=== PATIENT | male | born 1975 | race Two or more races ===

== ENCOUNTER 2017-11-24 13:12 | Inpatient (IN) | payer OTHER ==
[~2017-11-24 13:12] MED LIST: ISOVUE-370 76%-LOCM 1 ML ONE; Iopamidol 370 76% 50 ML VIAL FS ONE; Ketorolac Tromethamine 30 MG/ML VIAL ONE; Lidocaine 1% PF 5 ML VIAL ONE; Ondansetron HCl/PF 4 MG/2 ML Vial ONE; PHENYLEPHRINE-NS 100 MCG/ML 10 ML SYRINGE ONE; PROPOFOL 200 MG/20 ML VIAL ONE; Succinylcholine Chloride 20 MG/ML 10 ml SYRINGE FS ONE; ePHEDrine/0.9% NaCl/PF SYRINGE 50 mg/10 ml ONE
[2017-11-24 15:03] LABS: Mean Corpuscular HGB CONC 32.7 g/dL (32.0-36.0); Mean Corpuscular Hemoglobin 23.6 pg (27.0-31.0); Mean Corpuscular Volume 72.2 fl (80.0-94.0); Mean Platelet Volume 9.2 fL (7.4-10.4); Platelet Count 345 thou/uL (130-400); RBC Distribution Width 16.1 % (11.5-14.5); Red Blood Cell (RBC) Count 5.52 mill/uL (4.70-6.10); White Blood Cell (WBC) Count 5.9 thou/uL (4.8-10.8)
[2017-11-24 15:12] LABS: ALT (SGPT) 12 U/L (8-55); AST (SGOT) 12 U/L (5-34); Albumin 4.1 g/dL (3.5-5.0); Alkaline Phosphatase 81 U/L (40-150); Anion Gap 11 mmol/L (10-20); BUN (Urea Nitrogen) 22 mg/dL (8.9-20.6); Bilirubin, Total 0.4 mg/dL (0.2-1.2); Calc. Creatinine Clearance 0 mL/min (70-130); Carbon Dioxide 25 mmol/L (22-29); Chloride 103 mmol/L (98-107); Estimated GFR-MDRD 86; Glucose 95 mg/dL (70-105); Lipase 8 U/L (8-78); Potassium 3.8 mmol/L (3.5-5.1); Protein, Total 7.1 g/dL (6.0-8.3); Sodium 135 mmol/L (136-145)
[2017-11-24 15:30] LABS: Anisocytosis SLIGHT = 6-15 cells (100X) (0-5/hpf); Band 2 % (5-11); Eosinophils 1 % (0-10); Lymphocytes 53 % (21-51); MDiff Complete? YES; Monocytes 7 % (0-10); Neutrophil 37 % (42-75); PLT Morphology Comment Appears Adequate
[2017-11-24] MEDS ORDERED: Lorazepam 2 MG/ML VIAL ONE (16:44)
[2017-11-24] MEDS ORDERED: Morphine 4 MG/ML VIAL ONE (16:44)
[2017-11-24] MEDS ORDERED: Benzocaine 20% Spray 60 ML CAN ONE ×2 (17:02→17:35)
[2017-11-24] MEDS ORDERED: Piperacillin/Tazobactam 4.5 GM in Sodium Chloride 0.9% 100 ML IVPB SCH (17:15)
--- NOTE | 2017-11-24 17:45 | CT ---
CT ABDOMEN AND PELVIS WITH IV CONTRAST: 11/24/17 HISTORY: Abdominal pain which began two weeks ago. Patient unable to hold food down. FINDINGS: Linear densities are seen at each lung base probably related to atelectasis. There is dilatation of the cecum and ascending colon as well as multiple dilated loops of small bowel . The cecum measures 10.7 cm in greatest diameter with loops of small bowel measuring up to 5.6 cm in diameter. There is gas density seen in the region of the wall of loops of small bowel with beaded ty pe appearance and findings are worrisome for possibility of bowel wall gas related to pneumatosis. There is a mass with apple core configuration involving the hepatic flexure which is at the site of o bstruction. There are a few subcentimeter low density lesions within the right hepatic lobe which could potential ly represent metastatic lesions as the colonic mass is worrisome for neoplastic process. The spleen, pancreas, bilateral adrenal glands, kidneys, and decompressed urinary bladder demonstrate a grossly normal CT appearance. Vascular calcifications are seen in the infrarenal abdominal aorta and involving the iliac arteries. IMPRESSION: 1. Obstructing colonic mass at the level of the hepatic flexure with marked dilatation of loops of small bowel as well as the cecum. In addition, there are findings worrisome for pneumatosis involv ing loops of small bowel. 2. No free intraperitoneal gas or free fluid is present. 3. Hypodense right hepatic lobe lesions which could potentially represent metastatic disease. 4. Above findings discussed with Dr. Contreras in the Emergency Department on 11/24/17 at 1637 hours . 1. POS: [facility]
[2017-11-24] MEDS ORDERED: Bupivacaine/Epinephrine 0.25% 30 ML VIAL ONE (18:02)
[2017-11-24] MEDS ORDERED: Ketamine 50 MG/ML VIAL ONE (18:14)
[2017-11-24] MEDS ORDERED: Fentanyl 250 MCG/5 ML VIAL ONE (18:14)
[2017-11-24] MEDS ORDERED: Midazolam HCl 2 mg/2 ml Vial ONE (18:14)
[2017-11-24] MEDS ORDERED: Promethazine HCl 25 MG/ML VIAL ONE ×2 (18:16→21:20)
[2017-11-24] MEDS ORDERED: Ondansetron HCl/PF 4 MG/2 ML Vial ONE (18:16)
--- NOTE | 2017-11-24 18:56 | RAD ---
KUB: 11/24/17 INDICATION: Confirm NG tube placement. FINDINGS: NG tube projects in the region of the gastric fundus. Dilated loops of small and large bowel are pres ent likely related to colonic obstruction seen on CT examination dated 11/24/17. There is contrast exc retion within the renal collecting systems from the patient's recent CT evaluation. IMPRESSION: NG tube within the region of the gastric fundus. POS: [facility]
--- NOTE | 2017-11-24 18:57 | HP ---
CHIEF COMPLAINT: Abdominal distention, abdominal pain, nausea, and vomiting. HISTORY OF PRESENT ILLNESS: Patient is a 42-year-old male. He gives about a 2 week history of abdominal symptoms including postprandial vomiting, abdominal bloating and decreased frequency of bowel function. He denies any melena or hematochezia. He presented to the emergency room this even ing because of progressive distention and discomfort. He was seen in the emergency room by Dr. Sally sahu. He had a CT scan and laboratory studies performed. The CT scan reveals what appears to be an obs tructing colon lesion at the hepatic flexure. There is marked dilatation of the cecum and small carol l. There is a single hypodense lesion within the liver, potentially consistent with metastatic disea se. LABORATORY STUDIES: Revealed normal electrolytes and liver function tests. CEA level is pending. C BC reveals a hemoglobin level of 13 with a white blood cell count of 5.9. PAST MEDICAL HISTORY: Negative. PAST SURGICAL HISTORY: Tonsillar abscess. MEDICATIONS: Omeprazole. ALLERGIES: No known drug allergies. PERSONAL/SOCIAL HISTORY: He formerly smoked and drank occasionally. He denies prior drug use. He h as been incarcerated for 22 months and is scheduled to be released in the next 2 or 3 months. He is originally from [place]. REVIEW OF SYSTEMS: Otherwise, unremarkable. FAMILY HISTORY: Noncontributory. PHYSICAL EXAMINATION: VITAL SIGNS: He is afebrile. Vital signs within normal limits. GENERAL: He is a well-developed, well-nourished, pleasant male, resting in bed, in no acute distress. Nasogastric tube is in place, but really has been put out very much. He is alert and birgit ented x3. HEENT: Unremarkable. NECK: Supple, without mass or tenderness. LUNGS: Clear to auscultation throughout. CARDIAC: Regular rate and rhythm without murmur. ABDOMEN: Markedly distended. Bowel sounds are hypoactive. There is no focal tenderness, but it was so distended, it is hard to discern. EXTREMITIES: Unremarkable. RECTAL: Deferred at this time. ASSESSMENT: Patient with an obstructing colon lesion, consistent with colon cancer. PLAN: I have ordered a CEA level off of his labs already drawn. He clearly needs an exploratory lap arotomy with resection and end colostomy. I have discussed all this in detail with the patient as we ll as potential risks. He understands and agrees to proceed with surgery at this time.
[2017-11-24] MEDS ORDERED: HYDROmorphone 0.5 MG/0.5 ML SYRINGE ONE ×2 (19:57→21:20)
[2017-11-24] MEDS ORDERED: Fentanyl 100 MCG/2 ML VIAL ONE (21:20)
[2017-11-24] MEDS ORDERED: Promethazine HCl 25 MG/ML VIAL SLOW IVP PRN (21:37)
[2017-11-24] MEDS ORDERED: Promethazine HCl 25 MG/ML VIAL IM PRN ×2 (21:37→21:53)
[2017-11-24] MEDS ORDERED: HYDROmorphone 2 MG/ML VIAL SLOW IVP PRN (21:37)
[2017-11-24] MEDS ORDERED: Ondansetron HCl/PF 4 MG/2 ML Vial IVP PRN ×2 (21:37→21:53)
[2017-11-24] MEDS ORDERED: D5 1/2 NS w/20 mEq KCL 1,000 ML ONE (21:49)
[2017-11-24] MEDS ORDERED: hydrALAZINE 20 MG/ML VIAL SLOW IVP PRN (21:53)
[2017-11-24] MEDS: D5 1/2 NS w/20 mEq KCL 1,000 ML IV SCH (23:37)
[2017-11-24] MEDS: Famotidine 20 MG TAB PO SCH (23:38)
[2017-11-24] MEDS: Famotidine/PF 20 mg/2ml Vial SLOW IVP SCH (23:38)
[2017-11-25 00:23] VITALS: BMI 25.4
[2017-11-25] MEDS: cefOXitin 2 GM in Sodium Chloride 0.9% 100 ML IVPB SCH ×2 (01:11→05:44)
[2017-11-25] MEDS: Acetaminophen 1,000 MG in Premix Bag 1 BAG IVPB SCH ×4 (01:12→17:17)
[2017-11-25] MEDS: Ketorolac Tromethamine 30 MG/ML VIAL IVP SCH ×4 (01:13→17:16)
[2017-11-25 05:24] LABS: #Lymphocytes 0.8 thou/uL (1.20-3.40); #Monocytes 0.7 thou/uL (0.11-0.59); #Neutrophils 7.4 thou/uL (1.40-6.50); %Basophils 0.1 % (0.0-1.0); %Lymphocytes 8.8 % (21.0-51.0); %Monocytes 8.1 % (0.0-10.0); Hemoglobin 12.5 g/dL (14.0-18.0); Mean Corpuscular HGB CONC 33.6 g/dL (32.0-36.0); Mean Corpuscular Hemoglobin 24.2 pg (27.0-31.0); Mean Platelet Volume 8.9 fL (7.4-10.4); Platelet Count 294 thou/uL (130-400); Red Blood Cell (RBC) Count 5.15 mill/uL (4.70-6.10); White Blood Cell (WBC) Count 8.9 thou/uL (4.8-10.8)
[2017-11-25 05:41] LABS: Anion Gap 7 mmol/L (10-20); BUN (Urea Nitrogen) 16 mg/dL (8.9-20.6); Calc. Creatinine Clearance 125 mL/min (70-130); Calcium 8.5 mg/dL (7.8-10.44); Carbon Dioxide 26 mmol/L (22-29); Chloride 103 mmol/L (98-107); Estimated GFR-MDRD Greater than 90; Glucose 192 mg/dL (70-105); Potassium 4.5 mmol/L (3.5-5.1); Sodium 131 mmol/L (136-145)
[2017-11-25] MEDS: D5 1/2 NS w/20 mEq KCL 1,000 ML IV SCH ×3 (06:21→20:35)
[2017-11-25] MEDS: Famotidine/PF 20 mg/2ml Vial SLOW IVP SCH ×2 (08:43→20:33)
[2017-11-25] MEDS: Enoxaparin Sodium 40 MG/0.4 ML SYRINGE SC SCH (08:43)
[2017-11-25] MEDS: Famotidine 20 MG TAB PO SCH ×2 (08:50→19:59)
--- NOTE | 2017-11-25 09:22 | PRG ---
DATE OF SERVICE: 11/25/2017 SUBJECTIVE: Mr. Mckee is postoperative day #1 from laparotomy and extended right hemicolectomy fo r obstructing hepatic flexure malignancy. He is alert and pleasant this morning. He tells me he fee ls much better. His abdomen that was previously massively distended is now flat. OBJECTIVE: VITAL SIGNS: On examination, he is afebrile, pulse is 76, blood pressure is 101/65. LUNGS: Clear to auscultation. HEART: Regular rate and rhythm. ABDOMEN: Flat, minimal tenderness. Dressing is intact on the midline. There are surprisingly some bowel sounds today. EXTREMITIES: Unremarkable. LABORATORY STUDIES: CBC is unremarkable with hemoglobin of 12.5. Chemistry panel this morning revea ls minor electrolyte abnormalities. ASSESSMENT: He is doing very well following right hemicolectomy for obstructing colon cancer. After I emptied his small bowel, I did perform a primary anastomosis. Diet will be resumed as he seems to tolerate it, but for now we will stick with ice chips.
[2017-11-25] MEDS: Morphine 4 MG/ML VIAL SLOW IVP PRN (13:59)
[2017-11-25] MEDS: HYDROcodone/Acetaminophen 7.5/325 mg Tablet PO PRN (19:59)
--- NOTE | 2017-11-25 23:15 | OP ---
DATE OF OPERATION: 11/24/2017 PREOPERATIVE DIAGNOSIS: Hepatic flexure colon obstruction secondary to suspected colon cancer with e xtensive dilatation of the right colon and small bowel. POSTOPERATIVE DIAGNOSIS: Hepatic flexure colon obstruction secondary to suspected colon cancer with extensive dilatation of the right colon and small bowel. OPERATION PERFORMED: Exploratory laparotomy, right hemicolectomy, decompression of over 5 liters of small-bowel contents, primary stapled anastomosis. SURGEON: Patrick Hubbard M.D. PILLOWCASE CLEANER: Brenda Birch PA-C ANESTHESIA: General endotracheal. INDICATIONS: The patient is a 42-year-old male. He is a prisoner. He presents to the [facility] room with abdominal distention, pain, and vomiting. CT scan demonstrates an obstructing lesion at the hepatic flexure. He is taken to the operating room at this time for laparotomy with resectio n of the involved segment. DESCRIPTION OF OPERATION: Informed consent was obtained. The patient taken to the operating room wh ere general endotracheal anesthesia obtained with the patient in supine position. Abdomen was preppe d with ChloraPrep and draped in sterile fashion. Midline abdominal incision was created. Dissection was carried through skin and subcutaneous tissue in the midline. During the course of entry, there were a couple of superficial cautery moya to dilated segments of small bowel. These were quickly id entified and repaired with interrupted sutures of 3-0 silk. There was no perforation. The abdomen was explored. There was extensive massive dilatation of the small bowel extending up john paul ost to the ligament of Treitz. The right colon was huge even the appendix was began dilated. The pa lpable malignancy in the proximal transverse colon was identified. The transverse colon was decompre ssed distal to this. I initially tried to decompress the small bowel by placing a pursestring suture in the distal ileum, created an enterotomy, and passing the suction device internally. While this was able to remove abou t 2 liters of bowel contents, there was enough solid undigested material in the small bowel, the suct ion device became occluded repeatedly. After trying to clear this and utilize a suction device a few times, abandoned this idea and closed the enterotomy. I then decided to proceed with a right hemicolectomy. I created mesenteric window and divided the sm all bowel about 10 cm from the ileocecal valve. This is done with a 75 mm NOAH stapler. The right co adore was then mobilized in a lateral to medial fashion. The hepatic flexure was mobilized as well. I identified the ileocolic vessels and divided this vascular bundle at its base using the LigaSure dev ice. The mesentery of the right colon and proximal transverse colon was widely dissected, again usin g the LigaSure device. The specimen was then passed off the field after dividing the transverse colo n at approximately the mid colon. The small bowel was then positioned such that the stapled then was hanging off the patient's right si de of the abdomen. I opened the staple line, it transected end of the bowel and passed this into a l arge basin. I then evacuated all small bowel contents into the basin by carefully milking it in a pr oximal to distal fashion. The bowel decompressed nicely. I then occluded the opening with a Glassma n clamp and turned my attention to the transverse colon. I opened and part of the staple line of the transverse colon as well and created a stapled anastomosis between the small bowel and the transvers e colon using a NOAH-75 stapler. The enterotomy was then closed with a final firing of the same stapl er. The anastomosis was buttressed with several interrupted sutures of 2-0 silk. Mesenteric defect was closed with a running suture of 3-0 Vicryl. The abdominal cavity was then irrigated with 5 liter s of warm saline. There had been negligible bowel contents spilled during the course of the operatio n. The patient's abdomen was almost empty after having decompressed such a huge volume of bowel cont ents. The fascia was then closed with a looped #1 PDS suture. Gowns and gloves were changed at that point. The abdominal wall was washed off and the wound was irrigated with 2 liters of saline using a Pulsa vac system. The skin edges were approximated with interrupted janel placed loosely so is to allow placement of Telfa guido. Dry gauze dressing was placed externally. There were no complications. T he patient tolerated the procedure well and was taken to recovery room in stable condition.
[2017-11-26] MEDS: HYDROcodone/Acetaminophen 7.5/325 mg Tablet PO PRN (00:12)
[2017-11-26] MEDS: Ketorolac Tromethamine 30 MG/ML VIAL IVP SCH ×5 (00:12→23:39)
[2017-11-26] MEDS: Famotidine/PF 20 mg/2ml Vial SLOW IVP SCH ×2 (08:37→21:30)
[2017-11-26] MEDS: Enoxaparin Sodium 40 MG/0.4 ML SYRINGE SC SCH (08:37)
[2017-11-26] MEDS: Famotidine 20 MG TAB PO SCH ×2 (09:52→19:26)
[2017-11-26] MEDS: D5 1/2 NS w/20 mEq KCL 1,000 ML IV SCH ×3 (10:00→23:39)
--- NOTE | 2017-11-26 10:00 | PRG ---
DATE OF SERVICE: 11/26/2017 SUBJECTIVE: Mr. Mckee is postoperative day #2 from his open right hemicolectomy for obstructing c olon cancer. He is doing well today. He notes appropriate abdominal discomfort. He is tolerating i ce chips. He has ambulated in the cole a couple of times yesterday. He is voiding well. OBJECTIVE: VITAL SIGNS: On examination, he is afebrile. Vital signs within normal limits. LUNGS: Clear to auscultation. ABDOMEN: Has a dressing intact (Telfa guido are in place). There are no bowel sounds today. He has minimal appropriate discomfort. LABORATORY STUDIES: None today. ASSESSMENT: The patient is doing well postoperative day #2. In light of the extensive bowel decompr ession performed during surgery, I will be surprised if he has a prolonged postoperative ileus. We w ill await resumption of bowel function before advancing his diet.
[2017-11-26] MEDS: Morphine 4 MG/ML VIAL SLOW IVP PRN ×3 (11:51→21:34)
[2017-11-27] MEDS: Ketorolac Tromethamine 30 MG/ML VIAL IVP SCH ×3 (06:07→19:38)
[2017-11-27] MEDS: Famotidine/PF 20 mg/2ml Vial SLOW IVP SCH ×2 (09:01→20:41)
[2017-11-27] MEDS: Morphine 4 MG/ML VIAL SLOW IVP PRN ×2 (09:02→22:18)
[2017-11-27] MEDS: Famotidine 20 MG TAB PO SCH ×2 (09:09→22:17)
[2017-11-27] MEDS: D5 1/2 NS w/20 mEq KCL 1,000 ML IV SCH ×2 (11:18→20:39)
[2017-11-27] MEDS: Enoxaparin Sodium 40 MG/0.4 ML SYRINGE SC SCH (11:18)
--- NOTE | 2017-11-27 16:33 | PRG ---
DATE OF SERVICE: 11/27/2017 SUBJECTIVE: Mr. Mckee is postoperative day #3 from open right hemicolectomy for obstructing colon cancer. He still has no complaints. He notes that he has had flatus. He notes mild appropriate ab dominal discomfort. He is ambulating a couple of times per day. OBJECTIVE: VITAL SIGNS: Temperature 97.9, pulse 94, blood pressure 118/79. LUNGS: Clear to auscultation. ABDOMEN: Appears to be mildly protuberant, but it is soft. Bowel sounds are present but hypoactive. LABORATORY DATA: There are no new labs today. ASSESSMENT: The patient appears to be progressing nicely. His ileus appears to be resolving. I kumar l start him on clear liquid diet today. Hopefully, we will be able to advance his diet tomorrow. PLAN: We will plan on removing his Telfa guido tomorrow as well.
[2017-11-28] MEDS: Ketorolac Tromethamine 30 MG/ML VIAL IVP SCH (01:21)
[2017-11-28] MEDS: D5 1/2 NS w/20 mEq KCL 1,000 ML IV SCH ×3 (04:04→18:29)
[2017-11-28] MEDS ORDERED: Ondansetron ODT 4 MG TAB PO PRN (07:24)
[2017-11-28] MEDS: Enoxaparin Sodium 40 MG/0.4 ML SYRINGE SC SCH (09:27)
[2017-11-28] MEDS: Famotidine 20 MG TAB PO SCH ×2 (09:28→20:20)
[2017-11-28] MEDS: Famotidine/PF 20 mg/2ml Vial SLOW IVP SCH ×2 (09:28→20:18)
[2017-11-28] MEDS: Morphine 4 MG/ML VIAL SLOW IVP PRN ×2 (12:23→16:08)
--- NOTE | 2017-11-28 17:33 | PRG ---
DATE OF SERVICE: 11/28/2017 SUBJECTIVE: Mr. Mckee is postoperative day number 4 from open right hemicolectomy for obstructing colon cancer. He has no complaints, but it is noted that he has vomited today with attempt to clear liquid diet. He tells me he is having flatus, but has had no bowel movement. He clearly has some d egree of abdominal distention. OBJECTIVE: VITAL SIGNS: He is afebrile, pulse is 82, blood pressure 118/81. LUNGS: Clear to auscultation. ABDOMEN: Soft. His incision appears to be healing nicely. Telfa guido were removed today. Bowel s ounds are present, but they are tympanitic bowel sounds. I suspect there is significant small bowel dilatation. LABORATORY STUDIES: None. ASSESSMENT AND PLAN: The patient appears to have some degree of anticipated postoperative ileus give n the extent of bowel manipulation. For now, I will hold off on his clear liquids and have him take ice chips only by mouth and try to limit narcotics and increase activity. I will start him on Reglan as well.
[2017-11-28] MEDS: Metoclopramide HCl 10 MG/2 ML VIAL IVP SCH (18:25)
--- NOTE | 2017-11-28 18:27 | RAD ---
ABDOMEN ONE VIEW: 11/28/17 HISTORY: Nausea and vomiting. COMPARISON: Abdomen radiograph 11/24/17. FINDINGS: There are numerous dilated loops of large and small bowel. Evaluation of free air is limited without upright examination although was likely present given the well visualized bowel rodarte. Surgical clips are present along the midline abdomen. IMPRESSION: Numerous dilated loops of large and small bowel with free air likely postoperative in nature. Finding s are suggestive of an ileus. POS: [facility]
[2017-11-29] MEDS: Metoclopramide HCl 10 MG/2 ML VIAL IVP SCH ×5 (00:09→23:49)
[2017-11-29] MEDS: D5 1/2 NS w/20 mEq KCL 1,000 ML IV SCH ×3 (04:45→21:49)
[2017-11-29 06:05] LABS: #Eosinphils 0.3 thou/uL (0.0-0.7); #Lymphocytes 0.9 thou/uL (1.20-3.40); #Monocytes 0.9 thou/uL (0.11-0.59); #Neutrophils 4.4 thou/uL (1.40-6.50); %Basophils 0.4 % (0.0-1.0); %Eosinophils 4.7 % (0.0-10.0); %Lymphocytes 13.7 % (21.0-51.0); %Monocytes 14.4 % (0.0-10.0); %Neutrophils 66.8 % (42.0-75.0); Hemoglobin 10.7 g/dL (14.0-18.0); Mean Corpuscular HGB CONC 32.9 g/dL (32.0-36.0); Mean Corpuscular Hemoglobin 23.7 pg (27.0-31.0); Mean Corpuscular Volume 72.2 fl (80.0-94.0); Mean Platelet Volume 7.6 fL (7.4-10.4); Platelet Count 386 thou/uL (130-400); RBC Distribution Width 16.1 % (11.5-14.5); Red Blood Cell (RBC) Count 4.52 mill/uL (4.70-6.10); White Blood Cell (WBC) Count 6.5 thou/uL (4.8-10.8)
[2017-11-29 06:09] LABS: Anion Gap 9 mmol/L (10-20); BUN (Urea Nitrogen) 6 mg/dL (8.9-20.6); Calc. Creatinine Clearance 150 mL/min (70-130); Calcium 8.9 mg/dL (7.8-10.44); Carbon Dioxide 25 mmol/L (22-29); Chloride 106 mmol/L (98-107); Estimated GFR-MDRD Greater than 90; Glucose 105 mg/dL (70-105); Potassium 4.5 mmol/L (3.5-5.1); Sodium 135 mmol/L (136-145)
[2017-11-29] MEDS: Famotidine/PF 20 mg/2ml Vial SLOW IVP SCH ×2 (09:15→21:46)
[2017-11-29] MEDS: Famotidine 20 MG TAB PO SCH ×2 (09:15→21:48)
[2017-11-29] MEDS: Enoxaparin Sodium 40 MG/0.4 ML SYRINGE SC SCH (09:17)
--- NOTE | 2017-11-29 14:32 | PRG ---
DATE OF SERVICE: 11/29/2017 SUBJECTIVE: Mr. Mckee is postoperative day #5 from open right hemicolectomy for obstructing colon cancer. Today, he has had a bowel movement and believes he has passed some flatus. He denies nause a or vomiting. I did decrease his diet yesterday to ice chips only. X-ray yesterday showed extensiv e bowel dilatation consistent with an ileus. PHYSICAL EXAMINATION: VITAL SIGNS: He is afebrile, pulse is 91, blood pressure 115/78. LUNGS: Clear to auscultation. ABDOMEN: Some scant, but positive bowel sounds. LABORATORY STUDIES: CBC reveals normal white blood cell count of 6.5, hemoglobin is 10.7. Basic met abolic panel shows essentially normal electrolytes. ASSESSMENT: The patient is doing well. He has an expected prolonged ileus given the extent of his o bstruction. I will allow him to start having sips of clear liquids today. He should continue ambula ting frequently. I will check on him tomorrow and hopefully will be able to advance him to a clear l iquid diet tomorrow.
[2017-11-29] MEDS: Morphine 4 MG/ML VIAL SLOW IVP PRN (21:47)
[2017-11-30] MEDS: D5 1/2 NS w/20 mEq KCL 1,000 ML IV SCH ×2 (06:15→15:39)
[2017-11-30] MEDS: Metoclopramide HCl 10 MG/2 ML VIAL IVP SCH ×3 (06:15→17:58)
[2017-11-30] MEDS: Morphine 4 MG/ML VIAL SLOW IVP PRN ×2 (07:13→15:40)
--- NOTE | 2017-11-30 10:09 | RAD ---
TWO VIEWS ABDOMEN: Comparison: 11-28-17 History: Follow up ileus. FINDINGS: Supine and upright views of the abdomen shows multiple air filled loops of large and small bowel. Mul tiple air fluid levels are seen on prior examination. There is free air beneath the right hemidiaphra gm. The patient has midline skin janel from recent surgery. Air is seen in the rectum. IMPRESSION: Persistent dilated loops of large and small bowel may be secondary to post-operative ileus. There is free air likely from recent surgery. POS: [facility]
[2017-11-30] MEDS: Enoxaparin Sodium 40 MG/0.4 ML SYRINGE SC SCH (11:49)
[2017-11-30] MEDS: Famotidine 20 MG TAB PO SCH ×2 (11:49→20:44)
[2017-11-30] MEDS: Famotidine/PF 20 mg/2ml Vial SLOW IVP SCH (11:49)
[2017-11-30] MEDS ORDERED: D5 1/2 NS w/20 mEq KCL 1,000 ML IV SCH (18:45)
[2017-11-30] MEDS: HYDROcodone/Acetaminophen 7.5/325 mg Tablet PO PRN (20:44)
[2017-12-01] MEDS: HYDROcodone/Acetaminophen 7.5/325 mg Tablet PO PRN ×2 (01:03→09:17)
[2017-12-01] MEDS: Famotidine 20 MG TAB PO SCH (09:17)
[2017-12-01] MEDS: Enoxaparin Sodium 40 MG/0.4 ML SYRINGE SC SCH (09:17)
[2017-12-01 12:01] VITALS: BP 121/77; TEMP 97.9
--- NOTE | 2017-12-01 12:25 | DIS ---
DATE OF ADMISSION: 11/24/2017 DATE OF DISCHARGE: 12/01/2017 ADMITTING DIAGNOSIS: Obstruction from invasive adenocarcinoma. DISCHARGE DIAGNOSIS: Invasive colon cancer T3 N0 Mx. PROCEDURES: Right colectomy by Dr. Hubbard without complication. CONDITION AT DISCHARGE: Improved. STAFF: Dr. Hubbard. FOLLOW UP: Dr. Hubbard in 1 week for staple removal in office. HOSPITAL COURSE: The patient is a 42-year-old male admitted with colon obstruction, found to have an invasive cancer in the right colon and underwent right colectomy that pathology came back as margin negative T3 N0. Postop course uneventful. On the day of discharge, he is tolerating regular food. He has had multiple bowel movements. His wound is clear. His vital signs are stable. He is dischar ged to longterm. Prescription given for tramadol. He is to follow up with Dr. Hubbard in 1 week for s taple removal.
== END 2017-12-01 13:45 | disposition home or self-care (01) | DRG 330 ==
LOC: ERS 13:12 → SDC/OP 19:28 → SURG A 21:53
PROVIDERS: ADMIT Specialist; ATTEND Specialist
PROC: 0DTF0ZZ Resection of Right Large Intestine, Open Approach (ICD-10-PCS; principal; 2017-11-24)
DX: C18.2 Malignant neoplasm of ascending colon (principal); K56.7 Ileus, unspecified; Z87.891 Personal history of nicotine dependence
CPT/HCPCS: 36415; 74018; 74019; 74177; 80048; 80053; 82378; 83605; 83690; 85025; 88309; 96361; 96365; 96375; J0131; J0694; J1170; J1650; J1885; J2001; J2060; J2250; J2270; J2405; J2543; J2550; J2704; J2765; J3010; J7050; Q0162; S0028